=== PATIENT | female | born 1950 | race Caucasian/White ===

== ENCOUNTER 2017-03-10 15:57 | Outpatient (CLI) | payer MEDICARE, OTHER ==
--- NOTE | 2017-03-10 16:33 | Diagnostic Imaging Report ---
[facility] [address] [facility].[address] [address] Report Submission Date: Mar 10, 2017 4:29:06 PM CDT Patient Study Name: NAEEM SARMIENTO Date: Mar 10, 2017 4:09:46 PM CDT Modality Type: CR Gender: F Description: ABDOMEN : 46 Institution: [facility] Physician: YUSUF SINGH (RN TRANSITION) - OP Examination: Abdomen series History: Abdominal discomfort Findings: 2 views obtained of the abdomen. No abnormal dilation of the large or small bowel. Air and stool throughout the large bowel. No suspicious calcification projecting over the renal fossa or the lower pelvic region. Osseous structures are appropriate for age. Impression: No obstruction. No suspicious calcifications by plain film sensitivity. Electronically signed on Mar 10, 2017 4:29:06 PM CDT by: Jaspal RASHID
== END 2017-03-10 16:00 ==
LOC: RAD 15:57
PROVIDERS: ATTEND Nurse Practitioner Family
DX: R10.84 Generalized abdominal pain (principal)
CPT/HCPCS: 74000

== ENCOUNTER 2017-03-25 12:04 | Outpatient (CLI) | payer MEDICARE, OTHER ==
--- NOTE | 2017-03-25 15:35 | Diagnostic Imaging Report ---
YUSUF SINGH (SCHOOL RESOURCE OFFICER) - OP [facility] [address] [address] Report Submission Date: Mar 25, 2017 12:47:49 PM CDT Patient Study Name: NAEEM SARMIENTO Date: Mar 25, 2017 12:16:03 PM CDT Modality Type: CR Gender: F Description: ABDOMEN : 46 Institution: [facility] Physician: YUSUF SINGH (SCHOOL RESOURCE OFFICER) - OP Examination: Obstruction series History: Abdominal discomfort Findings: 3 views obtained of the abdomen. No abnormal dilation of the large or small bowel. Air and stool throughout the large bowel. No suspicious calcification projecting over the renal fossa or the lower pelvic region. Osseous structures demonstrate degenerative changes. Impression: Large bowel stool. No obstruction. No suspicious calcifications by plain film sensitivity. Electronically signed on Mar 25, 2017 12:47:49 PM CDT by: Jaspal RASHID
== END 2017-03-25 12:06 ==
LOC: RAD 12:04
PROVIDERS: ATTEND Nurse Practitioner Family
DX: R19.4 Change in bowel habit (principal)
CPT/HCPCS: 74020

== ENCOUNTER 2017-03-26 11:16 | Outpatient (CLI) | payer MEDICARE, OTHER ==
--- NOTE | 2017-03-26 15:15 | Diagnostic Imaging Report ---
YUSUF SINGH (BEND SORTER) - OP [facility] [address] [address] Report Submission Date: Mar 26, 2017 11:38:23 AM CDT Patient Study Name: NAEEM SARMIENTO Date: Mar 26, 2017 11:23:51 AM CDT Modality Type: CR Gender: F Description: ABDOMEN : 46 Institution: [facility] Physician: YUSUF SINGH (BEND SORTER) - OP Examination: Obstruction series History: Abdominal discomfort Findings: 3 views obtained of the abdomen. No abnormal dilation of the large or small bowel. Air and stool throughout the large bowel. No suspicious calcification projecting over the renal fossa or the lower pelvic region. Pelvic phleboliths. Osseous structures demonstrate degenerative changes. Impression: No obstruction. No suspicious calcifications by plain film sensitivity. Electronically signed on Mar 26, 2017 11:38:23 AM CDT by: Jaspal RASHID
== END 2017-03-26 11:17 ==
LOC: RAD 11:16
PROVIDERS: ATTEND Nurse Practitioner Family
DX: R19.4 Change in bowel habit (principal)
CPT/HCPCS: 74020

== ENCOUNTER 2017-05-13 17:15 | Outpatient (CLI) | payer MEDICARE, OTHER ==
--- NOTE | 2017-05-13 17:57 | Diagnostic Imaging Report ---
YUSUF SINGH (MUNA) - OP~ [facility] [address] [address] ~ ~ ~ ~ Report Submission Date: May 13, 2017 5:53:22 PM EXECUTIVE OFFICE MANAGER Patient ~ Study Name: NAEEM SARMIENTO ~ Date: May 13, 2017 5:24:38 PM EXECUTIVE OFFICE MANAGER ~ Modality Type: CR Gender: F ~ Description: ABDOMEN : 46 ~ Institution: [facility] Physician: YUSUF SINGH) [place] OP ~ ~ ~ Examination: Obstruction series History: Abdominal discomfort Findings: 2 views obtained of the abdomen. No abnormal dilation of the large or small bowel. Moderate stool throughout the large bowel. No suspicious calcification projecting over the renal fossa or the lower pelvic region.~ Lumbar degenerative changes. Impression: Moderate stool throughout the large bowel. No obstruction. No suspicious calcifications by plain film sensitivity. ~ Electronically signed on May 13, 2017 5:53:22 PM EXECUTIVE OFFICE MANAGER by: Jaspal RASHID
== END 2017-05-13 17:16 ==
LOC: RAD 17:15
PROVIDERS: ATTEND Nurse Practitioner Family
DX: R10.9 Unspecified abdominal pain (principal)
CPT/HCPCS: 74000